=== PATIENT | female | born 1965 | race Caucasian/White ===

== ENCOUNTER 2017-01-05 09:20 | Observation (INO) ==
[2017-01-05] MEDS ORDERED: Aspirin 81 MG TAB.CHEW PO STA (09:43)
[2017-01-05 09:50] LABS: Basophils % 0.4 %; Hematocrit 37.6 % (35.3-44.9); Hemoglobin 12.5 g/dL (11.5-15.4); Immature Granulocytes % 0.2 % (0-4); Lymphocytes # 0.8 K/mcL (0.6-4.6); Lymphocytes % 17.1 %; Mean Corpuscular HGB Conc 33.2 g/dL (31.6-35.5); Mean Corpuscular Hemoglobin 28.1 pg (28.0-33.3); Mean Corpuscular Volume 84.5 fL (83.0-100.0); Monocytes # 0.3 K/mcL (0.0-1.3); Monocytes % 5.9 %; Neutrophils # 3.5 K/mcL (1.6-8.9); Platelet Count 207 K/mcL (140-400); Red Blood Count 4.45 M/mcL (3.82-4.97); Red Cell Distribution Width 14.2 % (11.5-14.5); Segmented Neutrophils % 76.4 %
[2017-01-05 10:11] LABS: BUN/Creatinine Ratio 14 (6-26); Blood Urea Nitrogen 12 mg/dL (7-20); Calcium 9.7 mg/dL (8.6-10.8); Carbon Dioxide 28 mEq/L (19-29); Chloride 105 mEq/L (98-109); Glucose 107 mg/dL (70-99); Osmolality,Calculated 290 (280-300); Potassium 3.9 mEq/L (3.5-4.5); Sodium 140 mEq/L (136-145); eGFR For African Americans > 60 (> 60); eGFR For Non-African Americans > 60 (> 60)
[2017-01-05] MEDS: Nitroglycerin 0.4 MG TAB.SUBL SL PRN ×2 (10:12→10:27)
[2017-01-05 10:32] LABS: Bilirubin,Urine Large (Negative); Blood,Urine Negative (Negative); Color,Urine Yellow (Yellow); Glucose,Urine (UA) Normal (Normal); Ketones,Urine Negative (Negative); Leukocyte Esterase,Urine Negative (Negative); Nitrite,Urine Negative (Negative); PH,Urine 6.5 pH Units (5.0-8.0); Protein,Urine Negative (Neg-Trace); Specific Gravity,Urine 1.027 (1.010-1.025); Urobilinogen,Urine Normal (Normal)
[2017-01-05 10:33] LABS: Clarity,Urine Slightly Hazy (Clear)
[2017-01-05] MEDS ORDERED: Ondansetron 4 MG/2 ML VIAL IVP ONE (11:06)
[2017-01-05] MEDS ORDERED: *HR* Morphine 2 MG/ML SYRINGE IVP ONE (11:06)
--- NOTE | 2017-01-05 11:51 | Emergency Department Note ---
Disposition Clinical Impression: Chest pain Qualifiers: Chest pain type: unspecified Qualified Code(s): R07.9 - Chest pain, unspecified Disposition: Admitted As Inpatient Condition: Good Forms: ED Satisfaction Letter Time of Disposition: 12:02 Chest Pain HPI - General Chief Complaint: ED Chest Pain Stated Complaint: Chest Pain Time Seen by Provider: 01/05/17 09:37 Source: patient Mode of arrival: ambulatory Limitations: no limitations Vital Signs Reviewed: Yes Nursing Notes Reviewed: Yes - History of Present Illness HPI Narrative: Patient presents from work today with left-sided chest pain and discomfort started just prior to arrival. Patient had some mild some symptoms yesterday that was all spontaneously on their own. Symptoms came back against morning. She has no direct history of cardiac disease at this time. She denies any cough productive sputum fevers chills nausea vomiting or diarrhea. Denies headache or vision change. Main complaint is chest discomfort and pain that waxes and wanes. Pt complaint: chest pain Onset (ago): [employer] Duration: intermittent Onset: during rest Pain Location: substernal, left chest Severity: mild Severity scale (1-10): 3 Quality: tightness, aching, heaviness Pain Radiation: LUE Improves with: nothing Worsens with: nothing - Related Data Home Medications Medication Instructions Recorded Confirmed Albuterol Sulfate [Ventolin Hfa] 2 puff IH Q4-6H PRN 01/05/17 01/05/17 BuPROPion XL (24 HR) [Wellbutrin 150 mg PO DAILY 01/05/17 01/05/17 XL] Clotrimazole/Betameth Dip CRM 1 appl TP DAILY 01/05/17 01/05/17 [Lotrisone CRM] Escitalopram [Lexapro] 20 mg PO DAILY 01/05/17 01/05/17 Esomeprazole Magnesium [Nexium] 40 mg PO DAILY 01/05/17 01/05/17 Etodolac [Etodolac] 400 mg PO BID 01/05/17 01/05/17 Gabapentin [Neurontin] 300 mg PO BID 01/05/17 01/05/17 Methylphenidate HCl [Ritalin] 10 mg PO TID PRN 01/05/17 01/05/17 Metoclopramide [Reglan] 10 mg PO QIDAC 01/05/17 01/05/17 Modafinil [Provigil] 200 mg PO BID 01/05/17 01/05/17 Mometasone Furoate [Mometasone 2 spr NS DAILY 01/05/17 01/05/17 Furoate] Mometasone/Formoterol [Dulera 200 2 puff IH BID 01/05/17 01/05/17 Mcg/5 Mcg Inhaler] Tiotropium [place] [Spiriva 2 puff IH DAILY 01/05/17 01/05/17 Respimat] Tramadol HCl [Ultram] 50 mg PO QID PRN 01/05/17 01/05/17 Zileuton [Zileuton ER] 1,200 mg PO BID 01/05/17 01/05/17 cloNIDine HCl [CloNIDine HCl] 0.1 mg PO DAILY 01/05/17 01/05/17 Allergies Allergy/AdvReac Type Severity Reaction Status Date / Time Erythromycin Base Allergy Hives Verified 01/05/17 09:25 Penicillins [PCN] Allergy Hives Verified 01/05/17 09:25 Sulfa (Sulfonamide Allergy Swelling Verified 01/05/17 09:25 Antibiotics) of Lip/Tongue/Throat All systems ED: reviewed and negative except as stated. Review of Systems: As Per HPI Constitutional: Denies: fever, chills, weakness Cardiovascular: Reports: chest pain. Denies: palpitations, dyspnea on exertion , orthopnea, edema Respiratory: Denies: cough, dyspnea, wheezes Gastrointestinal: Denies: abdominal pain, nausea, vomiting, diarrhea Genitourinary: Denies: urgency, dysuria Musculoskeletal: Denies: back pain, neck pain Psychiatric: Denies: anxiety, depression Chest Pain PMH - Past Medical History Medical history: Reports: asthma, diabetes, GERD, hypertension Psychiatric history: Reports: anxiety - Social History Smoking Status: Former smoker Alcohol use: Reports: none Drug use: Reports: none Physical Exam - General Limitations: no limitations General appearance: alert - ENT ENT exam: normal exam, normal oropharynx, mucous membranes moist - Neck Neck exam: Present: normal inspection, full ROM, trachea midline - Chest Chest inspection: Present: normal inspection, symmetric chest wall rise. Absent : tenderness - Respiratory Respiratory exam: Present: normal lung sounds bilaterally. Absent: respiratory distress, accessory muscle use - Cardiovascular Cardiovascular exam: Present: regular rate, normal rhythm, normal heart sounds - Abdominal Exam Abdominal exam: Present: soft, Non-Tender, normal bowel sounds. Absent: tenderness, distention, guarding, rebound, rigidity - Extremities Exam Extremities exam: Present: normal inspection, full ROM, normal capillary refill. Absent: tenderness, pedal edema - Back Exam Back exam: Present: normal inspection, full ROM - Neurological Exam Neurological exam: Present: alert, oriented X3, CN II-XII intact, normal gait - Skin Skin exam: Present: warm, dry, intact, normal color Course Course Narrative: Patient seen and examined the time of arrival. See history of present illness. 51-year-old female presents our emergency room with onset of left-sided chest pain causing heaviness pressure or pain neuro left upper extremity. Denies any recent trauma or injury. Has a history of a stress test but is never had a cardiac evaluation stenting or other concerning history. She does have hypertension hyperlipidemia and diabetes. Patient is concerning for cardiac related source based on symptoms and history. She denies fevers chills nausea vomiting or diarrhea. Denies headache vision changes and shortness of breath. Patient is concerning for cardiac related source. EKG initially is normal sinus rhythm. Nitroglycerin trial be started secondary to the symptom onset presentation and concerning nature for acute coronary syndrome. Patient will be given aspirin here in the emergency room. X-ray EKG troponin and basic labs will be ordered at this point. Urinalysis pending. Patient will be most likely evaluated and admitted to the hospital and disposition is determined. Patient otherwise is still describing some heaviness and pain in the left chest wall. Disposition pending treatment course. - Reevaluation(s) Reevaluation #1: Jolie a negative troponin. Symptoms almost completely resolved with nitroglycerin and now she has a slight twinge of discomfort on the right side of her chest. Pain medication only medication given. No acute signs of acute coronary syndrome based on EKG with normal sinus rhythm with normal intervals and no acute signs of ST segment elevation. Patient was discussed with the presentation of symptoms of recommend admission for turning a troponins and possible echocardiogram and stress test. She is comfortable with this plan appreciates her concern. She will be admitted at this time for definitive management. Conversation and discussion were had with the on-call hospitalist Dr. valladares. Detailed review the presentation symptoms and patient's medical history were discussed and reviewed. No other concerns or issues noted. Patient will be admitted to the hospital for definitive management. Patient is feeling better with pain medication provided. Vital signs stable throughout the course of care. Disposition to be completed at this time Time: 12:01 Vital Signs Temperature 98.4 F 01/05/17 09:25 Pulse Rate 78 01/05/17 09:25 Respiratory Rate 18 01/05/17 09:25 Blood Pressure 142/84 01/05/17 09:25 O2 Sat by Pulse Oximetry 99 01/05/17 09:25 Temperature 98.4 F 01/05/17 09:25 Pulse Rate 74 01/05/17 10:57 Respiratory Rate 18 01/05/17 10:57 Blood Pressure 125/81 01/05/17 10:57 O2 Sat by Pulse Oximetry 97 01/05/17 10:57 Oxygen Delivery Oxygen Delivery Room Air Chest Pain - MDM Narrative Medical decision making narrative: Chest pain, acute coronary syndrome rule out - Medical Records Medical records reviewed: Yes I reviewed the patient's medical records. - Lab Data Lab results reviewed: Yes I reviewed the patient's lab results. Result diagrams: 01/05/17 09:41 01/05/17 09:41 Lab Results 01/05/17 01/05/17 01/05/17 Range/Units 09:41 09:41 09:41 WBC 4.6 (4.3-11.1) K/mcL RBC 4.45 (3.82-4.97) M/mcL Hgb 12.5 (11.5-15.4) g/dL Hct 37.6 (35.3-44.9) % MCV 84.5 (83.0-100.0) fL MCH 28.1 (28.0-33.3) pg MCHC 33.2 (31.6-35.5) g/dL RDW 14.2 (11.5-14.5) % Plt Count 207 (140-400) K/mcL MPV 9.0 L (9.4-12.4) fL Immature Gran % 0.2 (0-4) % Seg Neutrophils % 76.4 % Lymphocytes % 17.1 % Monocytes % 5.9 % Eosinophils % 0.0 % Basophils % 0.4 % Neutrophils # 3.5 (1.6-8.9) K/mcL Lymphocytes # 0.8 (0.6-4.6) K/mcL Monocytes # 0.3 (0.0-1.3) K/mcL Eosinophils # 0.0 (0.0-0.6) K/mcL Basophils # 0.0 (0.0-0.2) K/mcL PT 11.0 (9.4-12.1) Seconds INR 1.0 APTT 33.0 (26.0-36.0) Seconds Sodium 140 (136-145) mEq/L Potassium 3.9 (3.5-4.5) mEq/L Chloride 105 (98-109) mEq/L Carbon Dioxide 28 (19-29) mEq/L BUN 12 (7-20) mg/dL Creatinine 0.85 (0.57-1.11) mg/dL Est GFR ( Amer) > 60 (> 60) Est GFR (Non-Af Amer) > 60 (> 60) BUN/Creatinine Ratio 14 (6-26) Glucose 107 H (70-99) mg/dL Calculated Osmolality 290 (280-300) Calcium 9.7 (8.6-10.8) mg/dL Troponin I (0-0.03) ng/mL B-Natriuretic Peptide (0-100) pg/mL Ur Specimen Adequacy Urine Color (Yellow) Urine Clarity (Clear) Urine pH (5.0-8.0) pH Units Ur Specific Roberts (1.010-1.025) Urine Protein (Neg-Trace) mg/dL Urine Glucose (UA) (Normal) mg/dL Urine Ketones (Negative) mg/dL Urine Blood (Negative) Urine Nitrite (Negative) Urine Bilirubin (Negative) Urine Urobilinogen (Normal) mg/dL Ur Leukocyte Esterase (Negative) Ur Culture Indicated? (NO) 01/05/17 01/05/17 01/05/17 Range/Units 09:41 09:41 10:13 WBC (4.3-11.1) K/mcL RBC (3.82-4.97) M/mcL Hgb (11.5-15.4) g/dL Hct (35.3-44.9) % MCV (83.0-100.0) fL MCH (28.0-33.3) pg MCHC (31.6-35.5) g/dL RDW (11.5-14.5) % Plt Count (140-400) K/mcL MPV (9.4-12.4) fL Immature Gran % (0-4) % Seg Neutrophils % % Lymphocytes % % Monocytes % % Eosinophils % % Basophils % % Neutrophils # (1.6-8.9) K/mcL Lymphocytes # (0.6-4.6) K/mcL Monocytes # (0.0-1.3) K/mcL Eosinophils # (0.0-0.6) K/mcL Basophils # (0.0-0.2) K/mcL PT (9.4-12.1) Seconds INR APTT (26.0-36.0) Seconds Sodium (136-145) mEq/L Potassium (3.5-4.5) mEq/L Chloride (98-109) mEq/L Carbon Dioxide (19-29) mEq/L BUN (7-20) mg/dL Creatinine (0.57-1.11) mg/dL Est GFR ( Amer) (> 60) Est GFR (Non-Af Amer) (> 60) BUN/Creatinine Ratio (6-26) Glucose (70-99) mg/dL Calculated Osmolality (280-300) Calcium (8.6-10.8) mg/dL Troponin I 0.00 (0-0.03) ng/mL B-Natriuretic Peptide 22 (0-100) pg/mL Ur Specimen Adequacy See below A Urine Color Yellow (Yellow) Urine Clarity Slightly Hazy (Clear) Urine pH 6.5 (5.0-8.0) pH Units Ur Specific [place] 1.027 H (1.010-1.025) Urine Protein Negative (Neg-Trace) mg/dL Urine Glucose (UA) Normal (Normal) mg/dL Urine Ketones Negative (Negative) mg/dL Urine Blood Negative (Negative) Urine Nitrite Negative (Negative) Urine Bilirubin Large H (Negative) Urine Urobilinogen Normal (Normal) mg/dL Ur Leukocyte Esterase Negative (Negative) Ur Culture Indicated? NO (NO) - Radiology Data Radiology results reviewed: Yes I reviewed the patient's radiology results. Chest x-ray is negative for acute intrathoracic related pathology - EKG Data EKG attestation: Yes I reviewed and interpreted this EKG. EKG shows normal: sinus rhythm, axis, intervals, QRS complexes, ST-T waves Rate: normal Rhythm: NSR [place]/QRS: normal When compared to previous EKG there are: no significant changes Interpretation: no acute changes, unchanged when compared to prior tracing (date ) Heart Score - Score History: Moderately Suspicious EKG: Normal Age: 45-65 Risk Factors: Equal/Greater than 3 risk factor or history of atherosclerotic disease Troponin: Less than normal limit HEART Score Total: 4
[2017-01-05] MEDS ORDERED: Naloxone 0.4 MG/ML INJ IVP PRN (12:17)
[2017-01-05] MEDS ORDERED: Ondansetron 4 MG/2 ML VIAL IVP PRN (12:17)
[2017-01-05] MEDS ORDERED: *HR* Morphine 2 MG/ML SYRINGE IVP PRN (12:22)
[2017-01-05] MEDS ORDERED: D5% in Water 1,000 ML IVC PRN (13:53)
[2017-01-05] MEDS ORDERED: Dextrose Gel 15 GM PO PRN ×2 (13:53)
[2017-01-05] MEDS ORDERED: *HR* Dextrose 50 % in Water (Syg) 50 ML SYRINGE IVP PRN (13:53)
--- NOTE | 2017-01-05 13:54 | Internal Med History&Physical ---
<Ira Velasquez - Last Filed: 01/05/17 14:11> Date of Encounter: 01/05/17 Time of Encounter: 12:00 Assessment and Plan (1) Chest pain Current visit: Yes Status: Acute 1 sudden onset of chest pressure that was relieved with nitroglycerin. SHe has diabetes hypertension obesity and family history of heart disease Troponin was 0 we will continue cycle troponins 2 we will continue with aspirin 3 nitroglycerin and morphine as needed 4 we will check lipid profile in a.m. Continuous cardiac monitoring 6 NPO after midnight stress test in a.m. Qualifiers: Chest pain type: unspecified Qualified Code(s): R07.9 - Chest pain, unspecified (2) Hypertension Current visit: Yes Status: Acute 1 continue with clonidine Qualifiers: Hypertension type: essential hypertension Qualified Code(s): I10 - Essential (primary) hypertension (3) Diabetes Current visit: No Status: Chronic Accu-Cheks before meals at bedtime + sliding scale insulin 2 diabetic diet Qualifiers: Diabetes mellitus type: type 2 Diabetes mellitus complication status: without complication Diabetes mellitus assisted insulin use: without django developer use Qualified Code(s): E11.9 - Type 2 diabetes mellitus without complications (4) BINDU (obstructive sleep apnea) Current visit: No Status: Chronic CPAP (5) GERD (gastroesophageal reflux disease) Current visit: No Status: Chronic Continue with Reglan and Prilosec Qualifiers: Esophagitis presence: without esophagitis Qualified Code(s): K21.9 - Gastro -esophageal reflux disease without esophagitis (6) DVT prophylaxis Current visit: Yes [facility]: [facility] Internal Medicine - H&P: HPI Chief complaint: CP Admitted From: Emergency Dept Plans for Post Hospital Care: Home History of present illness: Ms. Torres is a 51 year old female past medical history of diabetes narcolepsy obstructive sleep apnea GERD and hypertension. According to the patient, she woke this morning around 6 AM when on her daily routine that she began to experience right-sided chest pressure, radiated to her left side. She went to work chest pressure increased and she became short of breath and the pain began to radiate to her back. The pain waxes and wanes but is constant with no aggravating or relieving factors. She presented to the ER where she was given nitroglycerin and aspirin and pain medication. This resolved her pain. Lab work was unremarkable troponin was 0 chest x-ray was clear EKG with no ST-T wave abnormalities. She denies any fevers chills abdominal pain diarrhea or shortness of breath. She denies any previous cardiac history or cardiac workup. She has been admitted for further work up evaluation. Torin patient does not appear to be in respiratory distress. She denies any chest pain. Her lung sounds are clear heart sounds are regular S1 and S2 with no rubs clicks, murmurs noted. Abdomen soft nontender no pedal edema. She is hematologically stable at this time. I reviewed this case with Dr. Mclean who agrees with plan. Past Med Surg Social Fam HX - Past Medical History Medical history: arthritis, asthma, diabetes, GERD, hypertension Psychiatric history: anxiety - Past Surgical History Surgical History: cholecystectomy - Social History Smoking Status: Former smoker Smokeless Tobacco Status: No Alcohol use: none Drug use: none - Family History Father Living Status: Cause of : CHF Hx Family Cardiac Disorders: Yes Hx Family Endocrine Disorder: Yes Internal Medicine - H&P: Meds Albuterol Sulfate [Ventolin Hfa] 2 puff IH Q4-6H PRN 01/05/17 [History] BuPROPion XL (24 HR) [Wellbutrin XL] 150 mg PO DAILY 01/05/17 [History] Clotrimazole/Betameth Dip CRM [Lotrisone CRM] 1 appl TP DAILY 01/05/17 [History] Escitalopram [Lexapro] 20 mg PO DAILY 01/05/17 [History] Esomeprazole Magnesium [Nexium] 40 mg PO DAILY 01/05/17 [History] Etodolac [Etodolac] 400 mg PO BID 01/05/17 [History] Gabapentin [Neurontin] 300 mg PO BID 01/05/17 [History] Methylphenidate HCl [Ritalin] 10 mg PO TID PRN 01/05/17 [History] Metoclopramide [Reglan] 10 mg PO QIDAC 01/05/17 [History] Modafinil [Provigil] 200 mg PO BID 01/05/17 [History] Mometasone Furoate [Mometasone Furoate] 2 spr NS DAILY 01/05/17 [History] Mometasone/Formoterol [Dulera 200 Mcg/5 Mcg Inhaler] 2 puff IH BID 01/05/17 [ History] Tiotropium [place] [Spiriva Respimat] 2 puff IH DAILY 01/05/17 [History] Tramadol HCl [Ultram] 50 mg PO QID PRN 01/05/17 [History] Zileuton [Zileuton ER] 1,200 mg PO BID 01/05/17 [History] cloNIDine HCl [CloNIDine HCl] 0.1 mg PO DAILY 01/05/17 [History] 3 Allergy/AdvReac Type Severity Reaction Status Date / Time Erythromycin Base Allergy Hives Verified 01/05/17 09:25 Penicillins [PCN] Allergy Hives Verified 01/05/17 09:25 Sulfa (Sulfonamide Allergy Swelling Verified 01/05/17 09:25 Antibiotics) of Lip/Tongue/Throat All Systems PM: A 10-system review of systems was performed and is negative for pertinent findings except as documented above in the HPI. - Constitutional Constitutional: no chills, no fever(s), no night sweats - EENT Eyes: no change in vision, no discharge, no pain, no photophobia Nose, mouth and throat: no dysphagia, no nasal discharge, no neck pain, no sore throat - Cardiovascular Cardiovascular ROS IM: chest pain - Respiratory Respiratory: no cough, no dyspnea, no wheezing, no excessive phlegm production - Gastrointestinal Gastrointestinal: no abdominal pain, no diarrhea, no hematemesis, no hematochezia, no melena, no nausea, no vomiting - Genitourinary Genitourinary: no change in urinary stream, no dysuria, no flank pain, no hematuria - Musculoskeletal Musculoskeletal ROS IM: no numbness, no tingling - Integumentary Integumentary IM: no rash, no unusual bruising - Neurological Neurological ROS: no confusion, no convulsions, no focal weakness, no numbness, no tingling, no tremor(s) - Hematologic/Lymphatic Hematologic/Lymphatic: no easy bruising - Constitutional Vitals: Temp Pulse Resp BP Pulse Ox 97.7 F 65 14 121/77 99 01/05/17 12:31 01/05/17 12:31 01/05/17 12:31 01/05/17 12:31 01/05/17 12:31 General appearance: Present: A&O X 3, morbidly obese - Head Head exam: Present: atraumatic, normocephalic - Eye Eye exam: Present: PERRL, conjuntiva pink, sclera anicteric Pupils: Present: PERRL - Neck Neck exam general surgery: Present: supple, trachea midline. Absent: lymphadenopathy - Respiratory Respiratory exam: Present: CTAB. Absent: accessory muscle use, rales, rhonchi, wheezes - Cardiovascular Cardiovascular exam: Present: RRR, +S1, +S2. Absent: diastolic murmur, gallop, rubs, systolic murmur - GI/Abdominal GI/Abdominal exam: Present: normal bowel sounds, soft, no peritoneal signs. Absent: distended, tenderness - Extremities Exam Extremities exam: Present: warm, radial pulses palpable and symmetrical. Absent : calf tenderness, cyanotic, pedal edema - Neurological Exam Neurological exam: Present: CN II-XII intact, oriented X3, no focal deficits. Absent: pronater drift, facial droop, speech deficit - Skin Skin exam: Present: dry, intact Internal Med - H&P Results - Labs CBC & Chem 7: 01/05/17 09:41 01/05/17 09:41 - EKG Data EKG shows normal: sinus rhythm - Diagnostic Studies Other Images Additional comments: Chest X-Ray 01/05/17 09:33 IMPRESSION: 1. No acute cardiopulmonary disease. D/ / Juan Carlos Juárez MD / Juan Carlos Juárez MD Interpreting Provider: Juan Carlos Juárez MD - VTE Reasons for not Prescribing Prophylaxis: Treatment not Indicated - Low risk for VTE <Umair Mclean - Last Filed: 01/05/17 18:37> Date of Encounter: 01/05/17 Internal Medicine - H&P: HPI History of present illness: Ms. Torres is a 51 year old female All Systems PM: A 10-system review of systems was performed and is negative for pertinent findings except as documented above in the HPI. - Constitutional Vitals: Temp Pulse Resp BP Pulse Ox 97.9 F 69 16 113/74 90 01/05/17 15:25 01/05/17 15:25 01/05/17 15:25 01/05/17 15:25 01/05/17 15:25 Internal Med - H&P Results - Labs CBC & Chem 7: 01/05/17 09:41 01/05/17 09:41 Labs: Cardiac Enzymes 01/05/17 Range/Units 14:52 Troponin I 0.00 (0-0.03) ng/mL - Attending Attestation I have personally seen and examined the patient. Patient has come in for chest pain. Exam is quite unremarkable with clear chest and regular rate and rhythm. I discussed the care plan with advanced nurse practitioner and we plan to do a stress test in the morning.
[2017-01-05] MEDS: Insulin LISPRO 300 UNITS/3 ML VIAL SQ SCH ×2 (16:50→22:18)
--- NOTE | 2017-01-05 20:52 | Electrocardiograph Report ---
[facility] [facility] [employer] [facility] Test Date: 2017-01-05 Pat Name: Taniya Torres Department: 102 Room: 3B24 Gender: F Barber Apprentice: : [id number] Requested By: Nolan Kilgore Order Number: [id number] Reading MD: Bean Ng MD Measurements Intervals [place] Rate: 72 P: 60 [place]: 154 QRS: 62 QRSD: 92 T: 46 QT: 390 QTc: 414 Interpretive Statements SINUS RHYTHM Electronically Signed On 01-05-2017 20:51:15 EDT by Bean Ng MD
[2017-01-05] MEDS: Gabapentin 300 MG CAPSULE PO SCH (21:56)
[2017-01-05] MEDS ORDERED: Budesonide/Formoterol 160/4.5 MDI IH SCH (22:00)
[2017-01-05] MEDS: ZILEUTON 600 MG PO SCH (23:53)
[2017-01-06 05:17] LABS: Basophils % 0.5 %; Eosinophils % 0.2 %; Hematocrit 37.4 % (35.3-44.9); Hemoglobin 11.8 g/dL (11.5-15.4); Immature Granulocytes % 0.2 % (0-4); Lymphocytes # 0.9 K/mcL (0.6-4.6); Lymphocytes % 22.3 %; Mean Corpuscular HGB Conc 31.6 g/dL (31.6-35.5); Mean Corpuscular Hemoglobin 27.3 pg (28.0-33.3); Mean Corpuscular Volume 86.4 fL (83.0-100.0); Monocytes # 0.4 K/mcL (0.0-1.3); Monocytes % 8.5 %; Neutrophils # 2.8 K/mcL (1.6-8.9); Platelet Count 177 K/mcL (140-400); Red Blood Count 4.33 M/mcL (3.82-4.97); Red Cell Distribution Width 14.3 % (11.5-14.5); Segmented Neutrophils % 68.3 %
[2017-01-06 05:38] LABS: BUN/Creatinine Ratio 19 (6-26); Blood Urea Nitrogen 15 mg/dL (7-20); Calcium 9.5 mg/dL (8.6-10.8); Carbon Dioxide 26 mEq/L (19-29); Chloride 108 mEq/L (98-109); Cholesterol 170 mg/dL (< 200); Glucose 110 mg/dL (70-99); HDL Cholesterol 56 mg/dL (40-59); LDL Cholesterol,Calculated 86 mg/dL (0-99); Magnesium 1.9 mg/dL (1.6-2.6); Osmolality,Calculated 291 (280-300); Sodium 140 mEq/L (136-145); Triglycerides 142 mg/dL (< 150); eGFR For African Americans > 60 (> 60); eGFR For Non-African Americans > 60 (> 60)
[2017-01-06 05:39] LABS: Potassium 4.4 mEq/L (3.5-4.5)
[2017-01-06] MEDS: *HR* Enoxaparin 40 MG/0.4 ML SYRINGE SQ SCH (06:14)
[2017-01-06] MEDS ORDERED: Regadenoson 0.4 MG/5 ML SYRINGE IVP ONE (06:22)
[2017-01-06] MEDS ORDERED: cloNIDine HCl 0.1 MG TABLET PO SCH ×2 (09:00→21:00)
[2017-01-06] MEDS: Insulin LISPRO 300 UNITS/3 ML VIAL SQ SCH ×4 (09:36→20:30)
[2017-01-06] MEDS: BuPROPion XL (24 HR) 150 MG TABLET PO SCH (09:43)
[2017-01-06] MEDS: Gabapentin 300 MG CAPSULE PO SCH ×2 (09:43→21:15)
[2017-01-06] MEDS: Aspirin 81 MG TAB.CHEW PO SCH (09:43)
[2017-01-06] MEDS ORDERED: Beclomethasone 80mcg MDI IH SCH (10:00)
[2017-01-06] MEDS: ZILEUTON 600 MG PO SCH ×2 (10:25→21:16)
[2017-01-06] MEDS: Tiotropium 18 MCG inhalation IH SCH (10:54)
--- NOTE | 2017-01-06 11:25 | Internal Med Progress Note ---
Date of Encounter: 01/06/17 Time of Encounter: 10:00 - Assessment and plan (1) Chest pain Current Visit: Yes Status: Acute Assessment and plan: Pt reports hypertension 2 nights ago with onset of chest heaviness that began on the right side and moved to the left side while she was at work. She states that her left hand felt heavy and weak. Pt states that she went to the office at work and had her son get her and take her to the ER. Pain was relieved with 2 nitroglycerin and morphine. She has had none since. Labs are WNL, troponins are negative x 3, EKG NSR without ischemic changes, CXR negative for acute cardiopulmonary process. Her vitals are stable. She is a 2 day stress test. Lungs are clear, no peripheral edema. Continue telemetry ASA NTG for pain as needed Stress day 2 tomorrow Monitor labs and vitals Qualifiers: Chest pain type: unspecified Qualified Code(s): R07.9 - Chest pain, unspecified (2) Hypertension Current Visit: Yes Status: Chronic Assessment and plan: Chronic. Continue home medications. Monitor vital signs. Qualifiers: Hypertension type: essential hypertension Qualified Code(s): I10 - Essential (primary) hypertension (3) Diabetes Current Visit: Yes Status: Chronic Assessment and plan: A1c ordered for morning. Continue SSI, accuchecks ac/hs, diabetic diet. Qualifiers: Diabetes mellitus type: type 2 Diabetes mellitus complication status: without complication Diabetes mellitus buttermaker helper insulin use: without buttermaker helper use Qualified Code(s): E11.9 - Type 2 diabetes mellitus without complications (4) BINDU (obstructive sleep apnea) Current Visit: Yes Status: Chronic Assessment and plan: Cpap at night. (5) GERD (gastroesophageal reflux disease) Current Visit: No Status: Chronic Assessment and plan: Chronic. Continue home medications. Qualifiers: Esophagitis presence: without esophagitis Qualified Code(s): K21.9 - Gastro -esophageal reflux disease without esophagitis (6) DVT prophylaxis Current Visit: Yes Status: Acute Assessment and plan: Lovenox SQ. Pt is also ambulatory. - Time Spent With Patient less than 15 minutes - Subjective Interval history: Pt was seen and assessed at 1000. She is alert and awake. Denies chest pain currently. Pt states that she feels that chest pain may be related to anxiety or change in dose of Provigil. She states that she has never had chest pain like this before and that she is unsure if chest pain caused anxiety or if anxiety caused chest pain. Pt is a 2 day stress test. - Constitutional Vitals: Temp Pulse Resp BP Pulse Ox 97.6 F 68 17 113/72 96 01/06/17 11:11 01/06/17 11:11 01/06/17 11:11 01/06/17 11:11 01/06/17 11:11 General appearance: Present: A&O X 3, morbidly obese, pleasant, no acute distress, answers questions appropriately - Head Head exam: Present: atraumatic, normal inspection, normocephalic - Eye Eye exam: Present: normal appearance, conjuntiva pink - ENT ENT exam: Present: mucous membranes moist, normal exam, normal external ear exam - Neck Neck exam general surgery: Present: normal inspection, trachea midline. Absent : lymphadenopathy, tenderness - Respiratory Respiratory exam: Present: CTAB. Absent: decreased breath sounds, rales, respiratory distress, rhonchi, stridor, wheezes - Cardiovascular Cardiovascular exam: Present: RRR, +S1, +S2. Absent: diastolic murmur, systolic murmur - GI/Abdominal GI/Abdominal exam: Present: distended, normal bowel sounds, soft. Absent: hepatomegaly, tenderness - Extremities Exam Extremities exam: Present: normal capillary refill, normal inspection, warm, radial pulses palpable and symmetrical. Absent: pedal edema, tenderness - Neurological Exam Neurological exam: Present: alert, oriented X3, no focal deficits. Absent: facial droop, speech deficit - Skin Skin exam: Present: dry, intact, normal color, rash, warm Internal Medicine: Result - Labs CBC & Chem 7: 01/06/17 04:23 01/06/17 04:23 Labs: Short CBC 01/06/17 Range/Units 04:23 WBC 4.1 L (4.3-11.1) K/mcL Hgb 11.8 (11.5-15.4) g/dL Hct 37.4 (35.3-44.9) % Plt Count 177 (140-400) K/mcL Neutrophils # 2.8 (1.6-8.9) K/mcL BMP 01/06/17 04:23 Sodium 140 Potassium 4.4 Chloride 108 Carbon Dioxide 26 BUN 15 Creatinine 0.81 Glucose 110 H Calcium 9.5 Cardiac Enzymes 01/05/17 01/05/17 Range/Units 14:52 21:08 Troponin I 0.00 0.01 (0-0.03) ng/mL - ABG Interpretation ABG results: PT/INR, D-dimer PT 11.0 Seconds (9.4-12.1) 01/05/17 09:41 - VTE Reasons for not Prescribing Prophylaxis: Treatment not Indicated - Low risk for VTE Consult Discharge Plan - Plan Referrals: Aracelis Eli, MEDICAL REVIEWER [Primary Care Provider] -
[2017-01-06] MEDS: traMADol 50 MG TABLET PO PRN (21:14)
[2017-01-07 05:05] LABS: Basophils % 0.6 %; Eosinophils % 0.2 %; Hematocrit 37.5 % (35.3-44.9); Hemoglobin 12.4 g/dL (11.5-15.4); Immature Granulocytes % 0.2 % (0-4); Mean Corpuscular HGB Conc 33.1 g/dL (31.6-35.5); Mean Corpuscular Hemoglobin 28.2 pg (28.0-33.3); Mean Corpuscular Volume 85.4 fL (83.0-100.0); Mean Platelet Volume 9.8 fL (9.4-12.4); Monocytes # 0.3 K/mcL (0.0-1.3); Monocytes % 6.3 %; Neutrophils # 3.6 K/mcL (1.6-8.9); Platelet Count 235 K/mcL (140-400); Red Blood Count 4.39 M/mcL (3.82-4.97); Red Cell Distribution Width 14.2 % (11.5-14.5); Segmented Neutrophils % 72.7 %
[2017-01-07 05:27] LABS: Estimated Average Glucose > 355 mg/dl; Hemoglobin A1C >= 14.1 %
[2017-01-07 05:46] LABS: BUN/Creatinine Ratio 17 (6-26); Blood Urea Nitrogen 16 mg/dL (7-20); Calcium 9.8 mg/dL (8.6-10.8); Carbon Dioxide 27 mEq/L (19-29); Chloride 107 mEq/L (98-109); Glucose 108 mg/dL (70-99); Osmolality,Calculated 296 (280-300); Potassium 4.2 mEq/L (3.5-4.5); Sodium 142 mEq/L (136-145); eGFR For African Americans > 60 (> 60); eGFR For Non-African Americans > 60 (> 60)
[2017-01-07] MEDS: *HR* Enoxaparin 40 MG/0.4 ML SYRINGE SQ SCH (05:50)
[2017-01-07] MEDS: ZILEUTON 600 MG PO SCH (08:26)
[2017-01-07] MEDS: Insulin LISPRO 300 UNITS/3 ML VIAL SQ SCH (08:31)
[2017-01-07] MEDS: Gabapentin 300 MG CAPSULE PO SCH (10:12)
[2017-01-07] MEDS: Aspirin 81 MG TAB.CHEW PO SCH (10:13)
[2017-01-07] MEDS: traMADol 50 MG TABLET PO PRN (10:13)
[2017-01-07] MEDS: BuPROPion XL (24 HR) 150 MG TABLET PO SCH (10:13)
[2017-01-07] MEDS: Tiotropium 18 MCG inhalation IH SCH (11:00)
[2017-01-07 11:37] VITALS: BP 122/67
--- NOTE | 2017-01-07 12:02 | Nuclear Medicine Stress Report ---
Regadenoson Nuclear 2 day Name: Taniya Torres Date of Study: 01/06/2017 Date: 1965 Ht: 64.0 in Medical Record#: [id number] Age: 51 Wt: 304.0 lb Gender: Female Order #: [id number] Location: [facility] Room: [facility] Supervising Provider: Tremayne Bullock CNP Reading Physician: Nargis Hanson DO Ordering Physician: Elizabeth Grant CNP Primary Care Physician: Aracelis Eli CNP Stress Technologist: Yancy Kat RRT Supervisor Cold Rolling: Rene Calderón Indications: Chest Pain Impression: Perfusion imaging was negative for ischemia or infarct. Pharmacologic ECG was negative for ischemia at the level of heart rate achieved. Gated EF = 63%. History: Hypertension Stress Test Summary: Stress Test Type: Pharmacologic Regadenoson 0.4mg/5ml given IV Baseline Information: Initial Heart Rate: 66 Blood Pressure: 110/70 Stress Information: Test Terminated Due to (primary): As per protocol Maximum Blood Pressure: 110/70 Maximum Heart Rate: 85 Percent Maximum Heart Rate Achieved: 51 Double Product: 9350 METS Reached: 1 Symptoms: No chest symptoms Nuclear Summary: SPECT myocardial perfusion imaging using Tc99m Sestamibi given intravenously was performed at rest and following cardiac stress testing. The resting images were obtained following initial dose of 35.4 mCi. Following stress an additional dose of 35.7 mCi was given at peak exercise or 30 seconds post regadenoson infusion. Medication Given: Time Medication Dose Units Route Findings: Stress Note * Resting ECG demonstrated normal sinus rhythm. * Pharmacologic stress ECG is negative for ischemia at level of heart rate achieved. * No arrhythmias were noted during stress. * Patient had no chest pain during stress. Hemodynamic responses * Normal hemodynamic responses to pharmacologic stress. Study Quality * Study quality is good. Gated EF % * Gated EF = 63%. Left Ventricle * The left ventricle is not dilated. NORMALS * Normal wall motion. * Normal segmental perfusion in stress. * Normal Segmental Perfusion in rest. TID * No evidence of transient ischemic dilatation. Lung Uptake * There is no evidence of increase lung uptake. Updated by Nargis Hanson on 01/07/2017 11:55:58 AM electronically signed on 01/07/2017 11:57:04 AM with status of Final
--- NOTE | 2017-01-07 13:21 | Discharge Summary ---
Date of Encounter: 01/07/17 Time of Encounter: 12:30 - Discharge Diagnosis (1) Chest pain Priority: Primary Status: Acute Comments: Patient denies chest pain. She denies any tingling to her extremities or shortness of breath. Stress test was negative for ischemia or infarct with a gaited EF of 63%. Chest x-ray was negative. EKG sinus rhythm with a rate of 72. Troponins were negative. Pain is not reproducible. Chest pain was most likely related to stress and/or anxiety. Patient relates that her daughter has a lot of legal troubles which translates into financial difficulty for the patient. 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 She says she is responsible for transporting him to and from his treatment and helping him with ADLs and home care. I will give pt Hydroxyzine to take home for periods of anxiety prn. Qualifiers: Chest pain type: unspecified Qualified Code(s): R07.9 - Chest pain, unspecified (2) Hypertension Priority: Secondary Status: Chronic Comments: Well controlled. Continue home medications. Qualifiers: Hypertension type: essential hypertension Qualified Code(s): I10 - Essential (primary) hypertension (3) Diabetes Priority: Secondary Status: Chronic Comments: Patient's A1c is greater than 14.1. Accu-Cheks and serum glucose here have not been over 160 since arrival. Estimated mean plasma glucose is greater than 355. Pt was on Metformin previously and was taken off when her A1c was near 5. She states that she does not watch her diet or check her blood sugar. Will restart Metformin and provide prescriptions for glucometer, strips, and lancets. Pt has a follow up appointment with PCP soon and will follow up. Qualifiers: Diabetes mellitus type: type 2 Diabetes mellitus complication status: without complication Diabetes mellitus mcfp insulin use: without mcfp use Qualified Code(s): E11.9 - Type 2 diabetes mellitus without complications (4) BINDU (obstructive sleep apnea) Priority: Secondary Status: Chronic Comments: Continue CPap at home. (5) GERD (gastroesophageal reflux disease) Priority: Secondary Status: Chronic Comments: Chronic. Continue home medications. Qualifiers: Esophagitis presence: without esophagitis Qualified Code(s): K21.9 - Gastro -esophageal reflux disease without esophagitis (6) DVT prophylaxis Priority: Secondary Status: Acute Comments: Lovenox SQ - Discharge Medications Prescriptions: HydrOXYzine Pamoate [Vistaril] 50 mg PO DAILY PRN #8 capsule PRN Reason: Anxiety metFORMIN [Glucophage] 500 mg PO BIDWM #60 tablet Home Medications: Albuterol Sulfate [Ventolin Hfa] 2 puff IH Q4-6H PRN 01/05/17 [History] BuPROPion XL (24 HR) [Wellbutrin Xl] 150 mg PO DAILY 01/05/17 [History] Clotrimazole/Betameth Dip CRM [Lotrisone CRM] 1 appl TP DAILY 01/05/17 [History] Escitalopram [Lexapro] 20 mg PO QAM 01/05/17 [History] Esomeprazole Magnesium [Nexium] 40 mg PO DAILY 01/05/17 [History] Etodolac 400 mg PO BID 01/05/17 [History] Gabapentin [Neurontin] 300 mg PO BID 01/05/17 [History] Methylphenidate HCl [Ritalin] 10 mg PO TID PRN 01/05/17 [History] Metoclopramide [Reglan] 10 mg PO QIDAC 01/05/17 [History] Modafinil [Provigil] 200 mg PO QAM 01/05/17 [History] Mometasone Furoate 2 spr NS DAILY 01/05/17 [History] Mometasone/Formoterol [Dulera 200 Mcg/5 Mcg Inhaler] 2 puff IH BID 01/05/17 [ History] Tiotropium [place] [Spiriva Respimat] 2 puff IH DAILY 01/05/17 [History] Tramadol HCl [Ultram] 50 mg PO QID PRN 01/05/17 [History] Zileuton [Zileuton ER] 1,200 mg PO BID 01/05/17 [History] cloNIDine HCl [CloNIDine HCl] 0.1 mg PO QAM 01/05/17 [History] Aspirin 81 mg PO DAILY 01/07/17 [Rx] HydrOXYzine Pamoate [Vistaril] 50 mg PO DAILY PRN #8 capsule 01/07/17 [Rx] metFORMIN [Glucophage] 500 mg PO BIDWM #60 tablet 01/07/17 [Rx] Allergies/Adverse Reactions: 3 Allergy/AdvReac Type Severity Reaction Status Date / Time Erythromycin Base Allergy Hives Verified 01/05/17 09:25 Penicillins [PCN] Allergy Hives Verified 01/05/17 09:25 Sulfa (Sulfonamide Allergy Swelling Verified 01/05/17 09:25 Antibiotics) of Lip/Tongue/Throat Procedures/tests Complete & Pending: Procedures Performed prior 72 hours Category Date Time Status NM janki perf SPECT multi [NM] Routine Exams 01/05/17 12:21 Taken SP pharm nuclear stress Routine Y 01/06/17 07:10 Completed Date of admission: 01/05/17 11:48 Primary care physician: Aracelis Eli CNP Discharging clinician: Elizabeth Grant Anticipated date of discharge: 01/07/17 - Patient Status Disposition: Home, Self-Care Condition: Good Functional capacity at discharge: independent ambulation Overall status at discharge: patient is back to baseline - Discharge Instructions Instructions: Chest Pain (DC) Follow Up With: Aracelis Eli CNP [Primary Care Provider] - 01/12/17 1:00 pm Additional Instructions: Follow up with your primary care provider as scheduled on 01/12. Take your medications as directed. Check your blood sugar every morning when you get up, before you eat, 2 hours after dinner, and at bedtime. Keep a log and take it to your appointment. Return to the ER as needed for any other problems or concerns, or if your symptoms return or worsen. Resume your normal activities as tolerated. - Diet and Activity Activity: increase activity as tolerated Diet: diabetic diet, low fat, low cholesterol Hospital course: Ms. Torres is a 51 year old female with past medical history of BINDU, diabetes, hypertension, GERD. She presented to the emergency department on 01/05 with complaint of sudden onset chest pressure when she awakened. It began about 6 AM in her right chest, then it radiated to the left side. While she was at work the chest pressure increased, she became short of breath, and the pain radiated through to her back. The pain waxed and waned, but was constant with no aggravating or relieving factors. When she reached the emergency room the aspirin and nitroglycerin resolved her pain. EKG in the emergency department showed normal sinus rhythm with no ST abnormalities. She denied any recent sick contacts, any recent illnesses, no fever, chills abdominal pain, diarrhea or shortness of breath. She denied nausea or diaphoresis with the pain. She has no prior cardiac history. She also has a history of asthma and was not in respiratory distress. She did not require any supplemental oxygen through her stay. Her lungs are clear. She is complaint with cpap at home. Patient's chest x-ray was negative. Her troponins were negative. Nuclear stress test was negative for ischemia or infarct with a gaited EF of 63%. BNP was negative at 22. Physical exam was unremarkable. Patient was pain-free throughout stay. Patient's A1c is greater then 14.1, with an estimated mean plasma glucose of greater than 355. Patient had been on metformin previously for diabetes, however she was taken off it when her A1c reached around 6. She states that she does not check her blood sugar as she should, and she does not watch her diet. Her serum glucose and accuchecks were no higher than 160, so I will give her Metformin instead of insulin. She has an appointment with her PCP on 01/12 and further evaluation and medication adjustments can be made at that time. She discussed the possibility of the chest pain episode actually being GERD symptoms. We discussed possibly changing her medications, but she declined for fear that her symptoms would worsen. Her vitals are stable and her labs are WNL. Pt is ready for discharge. - Time Spent with Patient Total time spent providing and/or coordinating discharge services: Less than 30 minutes - Constitutional Vitals: Temp Pulse Resp BP Pulse Ox 98.0 F 78 19 122/67 96 01/07/17 11:00 01/07/17 11:00 01/07/17 11:01 01/07/17 11:00 01/07/17 11:01 General appearance: Present: cooperative, A&O X 3, morbidly obese, pleasant, no acute distress, answers questions appropriately - Head Head exam: Present: atraumatic, normal inspection, normocephalic - Eye Eye exam: Present: normal appearance, conjuntiva pink - ENT ENT exam: Present: mucous membranes moist, normal exam, normal external ear exam - Neck Neck exam general surgery: Present: normal inspection, trachea midline. Absent : lymphadenopathy, tenderness - Respiratory Respiratory exam: Present: CTAB. Absent: chest wall tenderness, decreased breath sounds, rales, respiratory distress, rhonchi, stridor, wheezes - Cardiovascular Cardiovascular exam: Present: RRR, +S1, +S2. Absent: clicks, diastolic murmur, gallop, systolic murmur - GI/Abdominal GI/Abdominal exam: Present: distended, normal bowel sounds, soft. Absent: hernia, hepatomegaly, tenderness - Extremities Exam Extremities exam: Present: normal inspection, warm, radial pulses palpable and symmetrical. Absent: cyanotic, pedal edema, tenderness - Neurological Exam Neurological exam: Present: alert, oriented X3, no focal deficits. Absent: facial droop, speech deficit - Skin Skin exam: Present: dry, intact, normal color, warm. Absent: rash - VTE Reasons for not Prescribing Prophylaxis: Treatment not Indicated - Low risk for VTE
== END 2017-01-07 14:06 | disposition home or self-care (01) ==
LOC: 3BNU 09:20 → EMEROO 09:20 → 3BNU 12:24
PROVIDERS: ADMIT Internal Medicine; ATTEND Registered Nurse